=== PATIENT | male | born 1970 | race Caucasian/White ===

== ENCOUNTER 2021-06-23 09:43 | Day surgery (SDC) | payer BC ==
[~2021-06-23 09:43] MED LIST: Lactated Ringers 1,000 ML IV SCH; Lidocaine 1%/Sod Bicarbonate in NS 8.4% 1 ML Syringe IDERM PRN; Sodium Chloride 0.9% 10 ML Syringe FLUSH PRN; Sodium Chloride 0.9% 10 ML Syringe FLUSH SCH
[2021-06-23] MEDS ORDERED: Lidocaine 1% 4 ML ONE (10:17)
[2021-06-23] MEDS ORDERED: Propofol 200 MG/20 ML SDV ONE ×3 (10:17→10:57)
[2021-06-23 11:50] VITALS: BP 121/74; PULSE 72
== END 2021-06-23 11:47 | disposition home or self-care (01) ==
LOC: JD.SDS 09:43
PROVIDERS: ATTEND Surgery
DX: D12.4 Benign neoplasm of descending colon (principal); K62.1 Rectal polyp; G47.30 Sleep apnea, unspecified; F17.210 Nicotine dependence, cigarettes, uncomplicated; Z79.899 Other long term (current) drug therapy; Z98.890 Other specified postprocedural states
CPT/HCPCS: 45380; 45385; J2704; J7120; 00812